=== PATIENT | female | born 1975 | race Caucasian/White ===

== ENCOUNTER 2017-10-29 19:06 | Emergency (ER) | payer OTHER, MEDICAID ==
[~2017-10-29] VITALS: Ht 154.9 cm; Wt 108.9 kg
[~2017-10-29 19:06] MED LIST: ABILIFY 5 MG TAB5 M1 PO; ADDERALL XR 3030 MG PO; AEROCHAMBER MI1 EACH MC; ASPIRIN325 PO; CELEXA40 MG PO; CLARITIN10 MG PO; CLONAZEPAM 1 MG1 M1 PO; FLEXERIL PO; FUROSEMIDE 40 M40 M1 PO; GABAPENTIN 100100 MG PO; IBUPROFEN 800800 M1 PO; LAMICTAL100 MG PO; LATUDA60 MG PO; NORCO 5-325 TA1 EACH PO; PERCOCET 5-3251 EACH PO; PROAIR HFA8.5 GM INH; RESTORIL15 MG PO; SKELAXIN 800 M800 M1 PO; TRAMADOL 50 MG50 MG; TRAMADOL 50 MG50 MG PO; TRAZODONE 150150 M1 PO; ULTRAM 50MG TAB50 MG PO; UNICOMPLEX M TA1 TA1 PO; VANTIN PO; VITAMIN D1000 UNI1; XANAX 0.5 MG0.5 M1 PO; ZPAK PO; iron PO
[2017-10-29] MEDS ORDERED: GABAPENTIN 100100 MG (19:25)
[2017-10-29] MEDS ORDERED: PROTONIX40 M1 (19:25)
[2017-10-29] MEDS ORDERED: BUSPIRONE HCL10 MG (19:26)
[2017-10-29] MEDS ORDERED: CLEOCIN HCL150 MG PO (19:37)
[2017-10-29] MEDS ORDERED: NAPROSYN500 M1 PO (19:37)
[2017-10-29 19:45] VITALS: BP 142/73
== END 2017-10-29 19:45 | disposition home or self-care (01) ==
LOC: M.ERS 19:06
DX: K02.9 Dental caries, unspecified (principal); F90.9 Attention-deficit hyperactivity disorder, unspecified type; F31.9 Bipolar disorder, unspecified; G89.29 Other chronic pain; M54.9 Dorsalgia, unspecified; M19.90 Unspecified osteoarthritis, unspecified site; F17.210 Nicotine dependence, cigarettes, uncomplicated

== ENCOUNTER 2018-01-15 20:24 | Emergency (ER) | payer OTHER, MEDICAID ==
[~2018-01-15] VITALS: Ht 154.9 cm; Wt 111.1 kg
[~2018-01-15 20:24] MED LIST changes: +BUSPIRONE HCL10 MG; +CLEOCIN HCL150 MG PO; +GABAPENTIN 100100 MG; +NAPROSYN500 M1 PO; +PROTONIX40 M1
[2018-01-15] MEDS ORDERED: ZYRTEC10 M5 PO (20:34)
[2018-01-15] MEDS ORDERED: FOLBIC RF TABL1 EACH PO (20:35)
[2018-01-15] MEDS ORDERED: D3 + K2 DOTS 11 EACH PO (20:35)
[2018-01-15] MEDS ORDERED: TIZANIDINE HCL4 M1 PO (20:37)
[2018-01-15 21:07] LABS: ABSOLUTE BASOPHILS 0.1 thou/uL (0.0-0.2); ABSOLUTE EOSINOPHILS 0.1 thou/uL (0.0-0.7); ABSOLUTE LYMPHOCYTES 1.7 thou/uL (0.8-5.3); ABSOLUTE MONOCYTES 0.4 thou/uL (0.0-1.2); EOSINOPHILS 1.5 %; HEMATOCRIT 39.7 % (37.0-47.0); HEMOGLOBIN 13.8 gm/dL (12.0-15.0); LYMPHOCYTES 27.3 %; MCH 31.9 pg (26.0-34.0); MCHC 34.7 g/dL (28.0-37.0); MCV 91.9 fL (80.0-100.0); MONOCYTES 6.9 %; MPV 10.2 fl. (7.2-11.1); NUCLEATED RBCS 0 /100WBC; PLATELET COUNT* 175 thou/uL (150-400); POLYS 63.3 %; RBC 4.32 mil/uL (4.20-5.00); RDW-CV 13.4 % (10.5-14.5); WBC 6.3 thou/uL (4.0-11.0)
[2018-01-15 21:11] LABS: CALCIUM 8.7 mg/dL (8.5-10.1); CREATININE 1.1 mg/dL (0.6-1.3); POTASSIUM 3.8 mmol/L (3.5-5.1)
[2018-01-15] MEDS ORDERED: MEDROLDOSEPACK PO (21:47)
[2018-01-15] MEDS ORDERED: VENTOLIN HFA INH8 GM INH (21:52)
[2018-01-15] MEDS ORDERED: ZPAK PO (21:52)
[2018-01-15 21:59] VITALS: BP 123/49
--- NOTE | 2018-01-17 10:22 | EKG ---
[place] [address] ELECTROCARDIOGRAM REPORT Name: JAIME WINCHSETER Room: [facility]#: [id number] Admission: 01/15/18 Attend Phys: Discharge: 01/15/18 Date of : 79 Report #: [id number] THIS REPORT FOR: //name// [facility] ED Test Date: 2018-01-15 Test Time: 21:12:07 Pat Name: JAIME WINCHESTER Department: Room: Gender: F [employer] Supervisor: INA : 1975 Requested By: Cheryl Arteaga Order Number: [id number] MD: Marvin Gutierrez Measurements Intervals [place] Rate: 94 P: 54 PA: 115 QRS: -2 QRSD: 94 T: 176 QT: 458 QTc: 573 Interpretive Statements Sinus rhythm Borderline short PA interval Borderline repolarization abnormality Prolonged QT interval Baseline wander in lead(s) II,III,aVR,aVF,V1,V2,V3,V4,V5,V6 Compared to ECG 10/29/2014 10:27:21 Prolonged QT interval now present Electronically Signed On 01-17-2018 10:22:15 CDT by Marvin Gutierrez [email or web address] <ELECTRONICALLY SIGNED> By: Marvin Gutierrez MD, FAC 01/17/181021 11 11 Marvin Gutierrez MD, FAC /EPI
== END 2018-01-15 22:00 | disposition home or self-care (01) ==
LOC: M.ERS 20:24
PROVIDERS: Nurse Practitioner
DX: J40 Bronchitis, not specified as acute or chronic (principal); F90.9 Attention-deficit hyperactivity disorder, unspecified type; F31.9 Bipolar disorder, unspecified; F41.9 Anxiety disorder, unspecified; G89.29 Other chronic pain; M54.9 Dorsalgia, unspecified; M19.90 Unspecified osteoarthritis, unspecified site; N18.3 Chronic kidney disease, stage 3 (moderate); F17.210 Nicotine dependence, cigarettes, uncomplicated

== ENCOUNTER 2018-02-03 17:28 | Emergency (ER) | payer OTHER, MEDICAID ==
[~2018-02-03] VITALS: Ht 154.9 cm; Wt 108.9 kg
[~2018-02-03 17:28] MED LIST changes: +D3 + K2 DOTS 11 EACH PO; +FOLBIC RF TABL1 EACH PO; +MEDROLDOSEPACK PO; +TIZANIDINE HCL4 M1 PO; +VENTOLIN HFA INH8 GM INH; +ZYRTEC10 M5 PO
[2018-02-03] MEDS ORDERED: PHENTERMINE H37.5 MG PO (17:48)
[2018-02-03] MEDS ORDERED: LEVAQUIN 500 M500 M2 PO (20:01)
[2018-02-03] MEDS ORDERED: TESSALON PERLE100 MG PO (20:01)
[2018-02-03 20:13] VITALS: BP 125/66
== END 2018-02-03 20:14 | disposition home or self-care (01) ==
LOC: M.ERS 17:28
DX: J18.9 Pneumonia, unspecified organism (principal); F31.9 Bipolar disorder, unspecified; F41.9 Anxiety disorder, unspecified; M19.90 Unspecified osteoarthritis, unspecified site; N19 Unspecified kidney failure; Z98.890 Other specified postprocedural states; M54.9 Dorsalgia, unspecified; G89.29 Other chronic pain; F17.210 Nicotine dependence, cigarettes, uncomplicated

== ENCOUNTER 2018-03-02 19:10 | Emergency (ER) | payer OTHER, MEDICAID ==
[~2018-03-02] VITALS: Ht 154.9 cm; Wt 106.6 kg
[~2018-03-02 19:10] MED LIST changes: +LEVAQUIN 500 M500 M2 PO; +PHENTERMINE H37.5 MG PO; +TESSALON PERLE100 MG PO
[2018-03-02 20:10] LABS: ABSOLUTE BASOPHILS 0.1 thou/uL (0.0-0.2); ABSOLUTE EOSINOPHILS 0.2 thou/uL (0.0-0.7); ABSOLUTE LYMPHOCYTES 2.2 thou/uL (0.8-5.3); ABSOLUTE MONOCYTES 0.4 thou/uL (0.0-1.2); ABSOLUTE NEUTROPHILS 5.6 thou/uL (1.6-8.1); BASOPHILS 0.9 %; EOSINOPHILS 2.1 %; HEMATOCRIT 40.7 % (37.0-47.0); HEMOGLOBIN 13.8 gm/dL (12.0-15.0); LYMPHOCYTES 26.2 %; MCH 31.2 pg (26.0-34.0); MCV 91.9 fL (80.0-100.0); MONOCYTES 5.1 %; MPV 10.1 fl. (7.2-11.1); NUCLEATED RBCS 0 /100WBC; PLATELET COUNT* 180 thou/uL (150-400); POLYS 65.7 %; RBC 4.43 mil/uL (4.20-5.00); RDW-CV 13.3 % (10.5-14.5); WBC 8.5 thou/uL (4.0-11.0)
[2018-03-02 20:14] LABS: CALCIUM 10.1 mg/dL (8.5-10.1); CREATININE 1.2 mg/dL (0.6-1.3); POTASSIUM 3.8 mmol/L (3.5-5.1)
[2018-03-02 20:19] LABS: ALBUMIN 4.6 g/dL (3.4-5.0); TOTAL BILIRUBIN 0.4 mg/dL (<0.1-1.0); TOTAL PROTEIN 8.3 g/dL (6.4-8.2)
[2018-03-02 20:58] LABS: URINE BILIRUBIN NEGATIVE (Negative); URINE BLOOD NEGATIVE (Negative); URINE CLARITY CLEAR; URINE COLOR YELLOW; URINE GLUCOSE-RANDOM NEGATIVE (Negative); URINE KETONES NEGATIVE (Negative); URINE LEUKOCYTES-REFLEX NEGATIVE (Negative); URINE NITRITE-REFLEX NEGATIVE (Negative); URINE PROTEIN NEGATIVE (Negative); URINE UROBILINOGEN 0.2 E.U./dl (0.2-1.0)
[2018-03-02 22:23] VITALS: BP 139/79
== END 2018-03-02 22:25 | disposition home or self-care (01) ==
LOC: M.ERS 19:10
PROVIDERS: Emergency Medicine
DX: R51 Headache (principal); F90.9 Attention-deficit hyperactivity disorder, unspecified type; F31.9 Bipolar disorder, unspecified; F41.9 Anxiety disorder, unspecified; G89.29 Other chronic pain; M54.9 Dorsalgia, unspecified; M19.90 Unspecified osteoarthritis, unspecified site; N18.3 Chronic kidney disease, stage 3 (moderate); F17.210 Nicotine dependence, cigarettes, uncomplicated

== ENCOUNTER 2018-06-26 21:25 | Emergency (ER) | payer OTHER, MEDICAID ==
[~2018-06-26] VITALS: Ht 154.9 cm; Wt 108.9 kg
[2018-06-26 21:48] LABS: ABSOLUTE BASOPHILS 0.1 thou/uL (0.0-0.2); ABSOLUTE EOSINOPHILS 0.2 thou/uL (0.0-0.7); ABSOLUTE LYMPHOCYTES 2.6 thou/uL (0.8-5.3); ABSOLUTE MONOCYTES 0.5 thou/uL (0.0-1.2); ABSOLUTE NEUTROPHILS 6.1 thou/uL (1.6-8.1); BASOPHILS 1.5 %; EOSINOPHILS 2.1 %; HEMATOCRIT 42.6 % (37.0-47.0); HEMOGLOBIN 14.5 gm/dL (12.0-15.0); LYMPHOCYTES 27.5 %; MCHC 34.1 g/dL (28.0-37.0); MCV 93.9 fL (80.0-100.0); MONOCYTES 5.3 %; MPV 10.3 fl. (7.2-11.1); NUCLEATED RBCS 0 /100WBC; PLATELET COUNT* 194 thou/uL (150-400); POLYS 63.6 %; RBC 4.54 mil/uL (4.20-5.00); RDW-CV 13.3 % (10.5-14.5); WBC 9.6 thou/uL (4.0-11.0)
[2018-06-26 21:54] LABS: ANION GAP 6 mmol/L (7-16); BUN 11 mg/dL (7-18); CALCIUM 9.4 mg/dL (8.5-10.1); CHLORIDE 99 mmol/L (98-107); CO2 30 mmol/L (21-32); CREATININE 1.1 mg/dL (0.6-1.3); GLUCOSE 149 mg/dL (70-99); POTASSIUM 3.9 mmol/L (3.5-5.1); SODIUM 135 mmol/L (136-145)
[2018-06-26 21:58] LABS: APTT 30.8 Seconds (25.0-31.3); PROTIME 10.1 Seconds (9.20-11.50)
[2018-06-26 22:13] LABS: ALKALINE PHOSPHATASE 81 U/L (46-116); CK-MB MASS 2.4 ng/mL (<0.5-3.6); LIPASE 181 U/L (73-393); MAGNESIUM 1.9 mg/dL (1.8-2.4); NT-PRO BRAIN NAT PEPTIDE 32 pg/mL (<300); SGOT 18 U/L (15-37); SGPT 27 U/L (30-65); TOTAL BILIRUBIN 0.4 mg/dL (<0.1-1.0); TOTAL PROTEIN 7.7 g/dL (6.4-8.2); TROPONIN-I LEVEL <0.06 ng/mL (<0.06)
[2018-06-26 22:27] VITALS: BP 146/73
--- NOTE | 2018-06-27 09:37 | EKG ---
[place] [address] ELECTROCARDIOGRAM REPORT Name: RANULFOJAIME WILFRID [id number] Admission: 06/26/18 Attend Phys: Discharge: 06/26/18 Date of : 79 Report #: [id number] THIS REPORT FOR: //name// [facility] ED Test Date: 2018-06-26 Test Time: 21:30:01 Pat Name: JAIME WINCHESTER Department: Room: Gender: F Management Trainee: ANGIE : 1975 Requested By: Ron Brand Order Number: [id number] MD: Amado Parks Measurements Intervals [place] Rate: 106 P: 61 AK: 112 QRS: 8 QRSD: 98 T: 67 QT: 356 QTc: 473 Interpretive Statements Sinus tachycardia Compared to ECG 01/15/2018 21:12:07 Sinus rhythm no longer present Prolonged QT interval no longer present Electronically Signed On 06-27-2018 9:36:58 PROBATE [place] by Amado Parks [email or web address] <ELECTRONICALLY SIGNED> By: Amado Parks MD, [facility] 06/27/18 0936 D: [id number] Amado Parks MD, FACC /EPI
== END 2018-06-26 22:31 | disposition home or self-care (01) ==
LOC: M.ERS 21:25
PROVIDERS: Family Medicine
DX: R07.89 Other chest pain (principal); F17.210 Nicotine dependence, cigarettes, uncomplicated; F90.9 Attention-deficit hyperactivity disorder, unspecified type; F31.9 Bipolar disorder, unspecified; F41.9 Anxiety disorder, unspecified; M54.9 Dorsalgia, unspecified; G89.29 Other chronic pain; M48.00 Spinal stenosis, site unspecified; M19.90 Unspecified osteoarthritis, unspecified site; N18.3 Chronic kidney disease, stage 3 (moderate); Z98.890 Other specified postprocedural states

== ENCOUNTER 2019-04-01 17:58 | Emergency (ER) | payer OTHER, MEDICAID ==
[~2019-04-01] VITALS: Ht 154.9 cm; Wt 113.4 kg
[2019-04-01 18:42] LABS: INFLUENZA A ANTIGEN Negative (Negative); INFLUENZA B ANTIGEN Negative (Negative)
[2019-04-01] MEDS ORDERED: VENTOLIN HFA 1818 GM INH (18:42)
[2019-04-01] MEDS ORDERED: TESSALON PERLE100 MG PO (18:42)
[2019-04-01] MEDS ORDERED: PREDNISONE 20 M20 M1 PO (18:42)
[2019-04-01] MEDS ORDERED: ZPAK PO (18:45)
[2019-04-01 18:49] VITALS: BP 168/74
== END 2019-04-01 18:50 | disposition home or self-care (01) ==
LOC: M.ERS 17:58
PROVIDERS: Family Medicine
DX: J40 Bronchitis, not specified as acute or chronic (principal); F90.9 Attention-deficit hyperactivity disorder, unspecified type; F31.9 Bipolar disorder, unspecified; F41.9 Anxiety disorder, unspecified; G89.29 Other chronic pain; M19.90 Unspecified osteoarthritis, unspecified site; F17.210 Nicotine dependence, cigarettes, uncomplicated; Z98.890 Other specified postprocedural states

== ENCOUNTER 2020-02-11 15:39 | Emergency (ER) | payer OTHER, MEDICAID ==
[~2020-02-11] VITALS: Ht 154.9 cm; Wt 81.7 kg
[~2020-02-11 15:39] MED LIST changes: +PREDNISONE 20 M20 M1 PO; +VENTOLIN HFA 1818 GM INH
[2020-02-11] MEDS ORDERED: PROZAC10 M1 PO (15:51)
[2020-02-11 16:09] LABS: ABSOLUTE BASOPHILS 0.1 thou/uL (0.0-0.2); ABSOLUTE EOSINOPHILS 0.2 thou/uL (0.0-0.7); ABSOLUTE LYMPHOCYTES 2.3 thou/uL (0.8-5.3); ABSOLUTE MONOCYTES 0.5 thou/uL (0.0-1.2); ABSOLUTE NEUTROPHILS 7.3 thou/uL (1.6-8.1); BASOPHILS 0.9 %; EOSINOPHILS 1.8 %; HEMATOCRIT 45.7 % (37.0-47.0); HEMOGLOBIN 16.2 gm/dL (12.0-15.0); LYMPHOCYTES 21.8 %; MCH 33.2 pg (26.0-34.0); MCHC 35.4 g/dL (28.0-37.0); MCV 93.9 fL (80.0-100.0); MONOCYTES 5.3 %; MPV 9.9 fl. (7.2-11.1); NUCLEATED RBCS 0 /100WBC; PLATELET COUNT* 159 thou/uL (150-400); POLYS 70.2 %; RBC 4.87 mil/uL (4.20-5.00); RDW-CV 13.9 % (10.5-14.5); WBC 10.4 thou/uL (4.0-11.0)
[2020-02-11 16:18] LABS: CALCIUM 9.2 mg/dL (8.5-10.1); CREATININE 1.1 mg/dL (0.6-1.3); POTASSIUM 3.7 mmol/L (3.5-5.1)
[2020-02-11 16:23] LABS: URINE BILIRUBIN NEGATIVE (Negative); URINE BLOOD NEGATIVE (Negative); URINE CLARITY CLEAR; URINE COLOR YELLOW; URINE GLUCOSE-RANDOM NEGATIVE (Negative); URINE KETONES NEGATIVE (Negative); URINE LEUKOCYTES-REFLEX NEGATIVE (Negative); URINE NITRITE-REFLEX NEGATIVE (Negative); URINE PROTEIN NEGATIVE (Negative); URINE SPECIFIC GRAVITY 1.015 (1.005-1.030)
[2020-02-11 16:28] LABS: ALBUMIN 4.3 g/dL (3.4-5.0); TOTAL BILIRUBIN 0.7 mg/dL (<0.1-1.0)
[2020-02-11 16:29] LABS: APTT 27.1 Seconds (25.0-31.3); PROTIME 10.1 Seconds (9.20-11.50)
[2020-02-11 17:55] VITALS: BP 122/68
--- NOTE | 2020-02-12 10:33 | EKG ---
[place] [address] ELECTROCARDIOGRAM REPORT Name: RANULFOJAIME Sundeep Room: [facility]#: [id number] Admission: 02/11/20 Attend Phys: Discharge: 02/11/20 Date of : 79 Date of Service: 02/11/20 1550 Report #: [id number] THIS REPORT FOR: //name// [facility] ED Test Date: 2020-02-11 Test Time: 15:50:14 Pat Name: JAIME WINCHESTER Department: Room: Gender: [employer]: : 1975 Requested By: Ron Brand Order Number: [id number] MD: Fausto Whyte Measurements Intervals [place] Rate: 65 P: 46 ID: 93 QRS: 16 QRSD: 102 T: 50 QT: 451 QTc: 469 Interpretive Statements Sinus rhythm Short ID interval Compared to ECG 06/26/2018 21:30:01 Short ID interval now present Sinus tachycardia no longer present Electronically Signed On 02-12-2020 10:33:52 CDT by Fausto Whyte [email or web address] <ELECTRONICALLY SIGNED> By: Fausto Whyte MD, [facility] 02/12/20 1033 1550 1550 Fausto Whyte MD, [facility] /EPI
== END 2020-02-11 17:57 | disposition home or self-care (01) ==
LOC: M.ERS 15:39
PROVIDERS: Family Medicine
DX: R42 Dizziness and giddiness (principal); M19.90 Unspecified osteoarthritis, unspecified site; G89.29 Other chronic pain; F17.210 Nicotine dependence, cigarettes, uncomplicated; Z98.890 Other specified postprocedural states

== ENCOUNTER 2020-04-15 09:48 | Emergency (ER) | payer OTHER, MEDICAID ==
[~2020-04-15] VITALS: Ht 154.9 cm; Wt 77.1 kg
[~2020-04-15 09:48] MED LIST changes: +PROZAC10 M1 PO
[2020-04-15] MEDS ORDERED: FLEXERIL PO (12:01)
[2020-04-15] MEDS ORDERED: IBUPROFEN 800800 M1 PO (12:01)
[2020-04-15 12:05] VITALS: BP 135/69
== END 2020-04-15 12:05 | disposition home or self-care (01) ==
LOC: M.ERS 09:48
DX: M53.3 Sacrococcygeal disorders, not elsewhere classified (principal); M54.2 Cervicalgia; M19.90 Unspecified osteoarthritis, unspecified site; F17.210 Nicotine dependence, cigarettes, uncomplicated; Z79.899 Other long term (current) drug therapy

== ENCOUNTER 2020-06-07 18:53 | Emergency (ER) | payer OTHER, MEDICAID ==
[~2020-06-07] VITALS: Ht 154.9 cm; Wt 72.6 kg
[2020-06-07 19:14] LABS: URINE BILIRUBIN NEGATIVE (Negative); URINE BLOOD TRACE (Negative); URINE CLARITY CLEAR; URINE COLOR YELLOW; URINE GLUCOSE-RANDOM NEGATIVE (Negative); URINE KETONES NEGATIVE (Negative); URINE LEUKOCYTES-REFLEX NEGATIVE (Negative); URINE NITRITE-REFLEX NEGATIVE (Negative); URINE PROTEIN NEGATIVE (Negative)
[2020-06-07 19:47] LABS: ABSOLUTE EOSINOPHILS 0.1 thou/uL (0.0-0.7); ABSOLUTE MONOCYTES 0.4 thou/uL (0.0-1.2); ABSOLUTE NEUTROPHILS 4.3 thou/uL (1.6-8.1); HEMATOCRIT 42.8 % (37.0-47.0); MCH 31.6 pg (26.0-34.0); MCHC 33.1 g/dL (28.0-37.0); NUCLEATED RBCS 0 /100WBC; WBC 6.9 thou/uL (4.0-11.0)
[2020-06-07 19:52] LABS: BASOPHILS 0.3 %; EOSINOPHILS 1.4 %; HEMOGLOBIN 14.1 gm/dL (12.0-15.0); LYMPHOCYTES 29.8 %; MCV 95.7 fL (80.0-100.0); MPV 10.5 fl. (7.2-11.1); PLATELET COUNT* 137 thou/uL (150-400); POLYS 62.5 %; RBC 4.47 mil/uL (4.20-5.00); RDW-CV 13.3 % (10.5-14.5)
[2020-06-07 20:07] VITALS: BP 124/41
== END 2020-06-07 20:07 | disposition home or self-care (01) ==
LOC: M.ERS 18:53
PROVIDERS: Nurse Practitioner Psychiatric/Mental Health
DX: N93.9 Abnormal uterine and vaginal bleeding, unspecified (principal); R10.9 Unspecified abdominal pain; N18.30 Chronic kidney disease, stage 3 unspecified; F17.210 Nicotine dependence, cigarettes, uncomplicated; Z79.1 Long term (current) use of non-steroidal anti-inflammatories (NSAID); Z79.899 Other long term (current) drug therapy

== ENCOUNTER 2021-02-14 15:01 | Emergency (ER) | payer OTHER, MEDICAID ==
[~2021-02-14] VITALS: Ht 154.9 cm; Wt 68.0 kg
[2021-02-14] MEDS ORDERED: FLEXERIL PO (15:41)
[2021-02-14 15:51] VITALS: BP 132/70
== END 2021-02-14 15:52 | disposition home or self-care (01) ==
LOC: M.ERS 15:01
DX: S29.011A Strain of muscle and tendon of front wall of thorax, initial encounter (principal); S21.101A Unspecified open wound of right front wall of thorax without penetration into thoracic cavity, initial encounter; F90.9 Attention-deficit hyperactivity disorder, unspecified type; F31.9 Bipolar disorder, unspecified; F41.9 Anxiety disorder, unspecified; M19.90 Unspecified osteoarthritis, unspecified site; F17.210 Nicotine dependence, cigarettes, uncomplicated; Z98.890 Other specified postprocedural states; Z79.899 Other long term (current) drug therapy; X50.3XXA Overexertion from repetitive movements, initial encounter; Y93.E9 Activity, other interior property and clothing maintenance; Y92.89 Other specified places as the place of occurrence of the external cause; Y99.8 Other external cause status

== ENCOUNTER 2021-05-08 14:30 | Emergency (ER) | payer OTHER, MEDICAID ==
[~2021-05-08] VITALS: Ht 154.9 cm; Wt 68.0 kg
[2021-05-08] MEDS ORDERED: LYRICA 50 MG50 MG PO (14:55)
[2021-05-08] MEDS ORDERED: OMEPRAZOLE40 MG PO (14:56)
[2021-05-08 15:30] LABS: INFLUENZA A ANTIGEN Negative (Negative); INFLUENZA B ANTIGEN Negative (Negative)
[2021-05-08] MEDS ORDERED: ZPAK PO (15:50)
[2021-05-08 16:03] VITALS: BP 90/65
== END 2021-05-08 16:04 | disposition home or self-care (01) ==
LOC: M.ERS 14:30
PROVIDERS: Nurse Practitioner Family
DX: R09.81 Nasal congestion (principal); Z20.822 Contact with and (suspected) exposure to COVID-19; F90.9 Attention-deficit hyperactivity disorder, unspecified type; F32.9 Major depressive disorder, single episode, unspecified; F41.9 Anxiety disorder, unspecified; N18.30 Chronic kidney disease, stage 3 unspecified; M19.90 Unspecified osteoarthritis, unspecified site; F17.210 Nicotine dependence, cigarettes, uncomplicated; Z79.899 Other long term (current) drug therapy